=== PATIENT | male | born 1950 | race Caucasian/White ===

== ENCOUNTER 2020-03-31 05:26 | Inpatient (IN) | payer OTHER ==
[~2020-03-31] VITALS: Ht 182.9 cm; Wt 106.0 kg
[2020-03-31] MEDS ORDERED: HEPARIN SODIUM (PORCINE) 5000 UNITS/ML 1ML VIAL ONE (05:35)
[2020-03-31] MEDS ORDERED: HEPARIN SODIUM (PORCINE) 5000 UNITS/ML 1ML VIAL IV ONE (05:45)
[2020-03-31] MEDS ORDERED: SODIUM CHL 0.9% 50 ML ONE ×2 (05:58→07:04)
[2020-03-31] MEDS ORDERED: fentaNYL CITRATE 100 MCG/2 ML VL ONE (05:58)
[2020-03-31] MEDS ORDERED: ANGIOMAX 250 MG VIAL IV ONE ×2 (05:58→07:04)
[2020-03-31] MEDS ORDERED: IODIXANOL 320MG/ML 100ML BTL IV ONE (05:58)
[2020-03-31] MEDS ORDERED: MIDAZOLAM HCL 1MG/1ML-2 ML VIAL ONE (05:58)
[2020-03-31] MEDS ORDERED: LIDOCAINE 2%HCL (LOCAL ANESTH.) INJ 20ML MDV ONE (05:59)
[2020-03-31] MEDS ORDERED: VERAPAMIL 2.5MG/ML INJ 2ML VIAL IV ONE (05:59)
[2020-03-31] MEDS ORDERED: MORPHINE SULFATE 4 MG/ML SYR/VIAL IV PRN (06:15)
[2020-03-31] MEDS ORDERED: NITROGLYCERIN 0.4 MG SL TAB SL PRN ×2 (06:15→08:00)
[2020-03-31] MEDS ORDERED: ACETAMINOPHEN 325 MG TAB PO PRN (06:15)
[2020-03-31] MEDS ORDERED: SODIUM CHLORIDE 0.9% 1,000 ML IV SCH (06:15)
[2020-03-31] MEDS ORDERED: MORPHINE SULF INJ 2 MG/ML SYRINGE 1ML IV PRN ×5 (06:15→10:15)
[2020-03-31 06:37] LABS: Basophils # (auto) 0.1 10 ^3/uL (0-0.2); Basophils % (auto) 0.7 % (0.0-2.0); Eosinophils # (auto) 0.1 10 ^3/uL (0-0.8); Eosinophils % (auto) 0.8 % (0.0-7.0); Hematocrit 47.9 % (41.0-53.0); Hemoglobin 16.8 g/dL (13.5-17.5); Lymphocytes # (auto) 1.6 10 ^3/uL (0.4-5.4); Lymphocytes % (auto) 14.4 % (10.0-50.0); Mean Corpuscular Volume 91.4 fL (80.0-100.0); Monocytes # (auto) 1.1 10 ^3/uL (0-1.3); Monocytes % (auto) 9.6 % (0.0-12.0); Neutrophils # (auto) 8.4 10 ^3/uL (1.6-8.6); Neutrophils % (auto) 74.5 % (37.0-80.0); Nucleated Red Blood Cells % 0.1 %; Platelet Count (auto) 219 10^3/uL (140-450); Red Blood Cells 5.24 10^6/uL (4.5-5.90); Red Cell Distribution Width 13.5 % (11.8-14.3); White Blood Cell 11.3 10^3/uL (4.4-10.8)
[2020-03-31 06:42] LABS: INR 1.07 (0.9-1.15); Partial Thromboplastin Time 28.3 sec (23.64-32.05)
[2020-03-31 06:44] LABS: Albumin 3.7 g/dL (3.4-5.0); Calcium 9.6 mg/dL (8.5-10.1); Magnesium 2.1 mg/dL (1.6-2.6)
[2020-03-31 06:52] LABS: BUN/Creatinine Ratio 11.3; Bilirubin, Total 0.8 mg/dL (0.2-1.0); Total Protein 7.5 g/dL (6.4-8.2)
[2020-03-31] MEDS ORDERED: TICAGRELOR 90 MG TAB ONE (07:23)
[2020-03-31 07:47] LABS: Potassium 2.8 mmol/L (3.5-5.1)
[2020-03-31 08:00] VITALS: BP 125/72
[2020-03-31] MEDS ORDERED: SOD CHL 0.9%/ KCL 40MEQ 1,000 ML IV SCH (08:00)
[2020-03-31] MEDS ORDERED: SPIRONOLACTONE 25 MG TAB PO ONE (08:15)
[2020-03-31] MEDS ORDERED: SODIUM CHLORIDE 0.9% 1,000 ML IV ONE (08:15)
[2020-03-31] MEDS ORDERED: POTASSIUM CHL 20MEQ/100ML 100 ML IV ONE (09:07)
[2020-03-31] MEDS: LISINOPRIL 10 MG TAB PO SCH (09:22)
[2020-03-31] MEDS: ASPirin 81 mg TAB PO SCH (09:22)
[2020-03-31] MEDS: CARVEDILOL 3.125 MG TAB PO SCH ×2 (09:22→22:00)
[2020-03-31] MEDS ORDERED: MORPHINE SULF INJ 2 MG/ML SYRINGE 1ML ONE (09:32)
[2020-03-31] MEDS ORDERED: CLOPIDOGREL BISULFATE 75 MG TAB PO SCH (10:00)
[2020-03-31] MEDS ORDERED: HYDROcodone-ACET 5/325MG TAB PO PRN (10:00)
[2020-03-31] MEDS ORDERED: POTASSIUM CHLORIDE 60 MEQ, LIDOCAINE 1% (LOCAL ANESTH.) 6 ML in SODIUM CHL 0.9% 500 ML IV ONE (11:00)
[2020-03-31 12:00] VITALS: BP 111/60
[2020-03-31] MEDS ORDERED: POTASSIUM CHL 20MEQ/100ML 100 ML IV SCH (12:00)
[2020-03-31] MEDS ORDERED: DEXTROSE (50%) 50ML SYRG IV PRN (13:45)
[2020-03-31] MEDS ORDERED: HCTZ 25 MG TAB PO ONE (13:45)
[2020-03-31 16:00] VITALS: BP 126/72
[2020-03-31] MEDS ORDERED: THROAT LOZENGES(CEPASTAT) MT PRN (16:30)
[2020-03-31] MEDS ORDERED: CALCIUM CARB 500 MG CHEW TAB PO PRN (16:30)
[2020-03-31] MEDS ORDERED: DILT60TA27 PO (17:59)
[2020-03-31] MEDS ORDERED: ENAL2.5T PO (17:59)
[2020-03-31] MEDS ORDERED: ATOR10TA PO (17:59)
[2020-03-31] MEDS ORDERED: ATEN-60 PO (17:59)
[2020-03-31] MEDS ORDERED: HCTZ25T PO (17:59)
[2020-03-31] MEDS ORDERED: CLOPIDOGREL BISULFATE 75 MG TAB PO ONE (18:00)
[2020-03-31] MEDS: ACCU-CHEK COMFORT CURVE STRIP VI SCH ×2 (19:41→21:45)
[2020-03-31] MEDS: InsuLIN REG 1unit/0.01ml Soln (100units/ml) SC SCH ×2 (19:41→22:00)
[2020-03-31 20:00] VITALS: BP 106/62
[2020-03-31 21:12] LABS: BUN/Creatinine Ratio 11.1; Calcium 8.8 mg/dL (8.5-10.1); Potassium 3.5 mmol/L (3.5-5.1)
[2020-03-31] MEDS ORDERED: TEMAZEPAM 15 MG CAP PO PRN (21:15)
[2020-03-31] MEDS: ATORVASTATIN 20 MG TAB PO SCH (21:45)
[2020-04-01] VITALS: BP 122/59
[2020-04-01] MEDS ORDERED: LORazepam 2MG/ML-1ML VIAL IV ONE (02:15)
[2020-04-01] MEDS ORDERED: LORazepam 2MG/ML-1ML VIAL ONE (02:17)
[2020-04-01 04:00] VITALS: BP 134/72
[2020-04-01 05:06] LABS: Albumin 3.1 g/dL (3.4-5.0); BUN/Creatinine Ratio 13.9; Bilirubin, Total 1.3 mg/dL (0.2-1.0); Calcium 8.5 mg/dL (8.5-10.1); Total Protein 6.5 g/dL (6.4-8.2)
[2020-04-01] MEDS: ACCU-CHEK COMFORT CURVE STRIP VI SCH ×4 (07:00→23:24)
[2020-04-01] MEDS: InsuLIN REG 1unit/0.01ml Soln (100units/ml) SC SCH ×4 (07:00→23:24)
[2020-04-01 08:00] VITALS: BP 144/89
[2020-04-01] MEDS ORDERED: POTASSIUM EFFERVESENT TAB 25 MEQ PO ONE (08:07)
[2020-04-01] MEDS: HCTZ 25 MG TAB PO SCH (09:25)
[2020-04-01] MEDS: ASPirin 81 mg TAB PO SCH (09:25)
[2020-04-01] MEDS: LISINOPRIL 10 MG TAB PO SCH (09:26)
[2020-04-01] MEDS: CLOPIDOGREL BISULFATE 75 MG TAB PO SCH (09:26)
[2020-04-01] MEDS: CARVEDILOL 3.125 MG TAB PO SCH ×2 (09:27→23:30)
[2020-04-01] MEDS: POTASSIUM CHL 10 Meq TABLET PO SCH (09:29)
[2020-04-01 10:08] LABS: Basophils # (auto) 0.1 10 ^3/uL (0-0.2); Basophils % (auto) 0.5 % (0.0-2.0); Eosinophils # (auto) 0 10 ^3/uL (0-0.8); Hematocrit 49.8 % (41.0-53.0); Hemoglobin 17.1 g/dL (13.5-17.5); Lymphocytes # (auto) 0.9 10 ^3/uL (0.4-5.4); Mean Corpuscular Hgb Conc. 34.5 g/dL (32.0-36.0); Mean Corpuscular Volume 92.9 fL (80.0-100.0); Monocytes # (auto) 1.8 10 ^3/uL (0-1.3); Monocytes % (auto) 7.8 % (0.0-12.0); Neutrophils # (auto) 20.2 10 ^3/uL (1.6-8.6); Neutrophils % (auto) 87.7 % (37.0-80.0); Platelet Count (auto) 190 10^3/uL (140-450); Red Blood Cells 5.36 10^6/uL (4.5-5.90); Red Cell Distribution Width 13.7 % (11.8-14.3); White Blood Cell 23.1 10^3/uL (4.4-10.8)
[2020-04-01 10:16] LABS: Urine Bacteria FEW /hpf (None Seen); Urine Blood 2+ /uL (Negative); Urine Specific Gravity 1.024 (1.001-1.035); Urine WBC 13 /hpf (0 - 3)
[2020-04-01] MEDS ORDERED: POTASSIUM CHL 20 Meq TABLET PO ONE (11:15)
[2020-04-01 12:00] VITALS: BP 128/82
[2020-04-01] MEDS ORDERED: FUROSEMIDE 100 MG/10ML VIAL IV ONE (12:45)
[2020-04-01] MEDS: SPIRONOLACTONE 25 MG TAB PO SCH (14:20)
[2020-04-01 16:00] VITALS: BP 123/81
[2020-04-01 20:00] VITALS: BP 124/78
[2020-04-01] MEDS: ATORVASTATIN 20 MG TAB PO SCH (23:24)
[2020-04-02] VITALS (7 sets, daily range): BP systolic 98–127; BP diastolic 56–84
[2020-04-02 03:26] LABS: Hematocrit 48.1 % (41.0-53.0); Hemoglobin 16.7 g/dL (13.5-17.5); Mean Corpuscular Hemoglobin 31.9 pg (28.0-32.0); Mean Corpuscular Hgb Conc. 34.7 g/dL (32.0-36.0); Mean Corpuscular Volume 91.8 fL (80.0-100.0); Platelet Count (auto) 196 10^3/uL (140-450); Red Blood Cells 5.25 10^6/uL (4.5-5.90); Red Cell Distribution Width 13.7 % (11.8-14.3)
[2020-04-02 03:29] LABS: Basophils % (manual) 0 (0.0-2.0); Blast Cells 0; Eosinophils % (manual) 0 (0-7); Metamyelocytes % 0; Myelocytes % 0; Promyelocytes % 0; Reactive Lymphocytes 0
[2020-04-02 03:43] LABS: Albumin 2.9 g/dL (3.4-5.0); BUN/Creatinine Ratio 14.8; Calcium 8.7 mg/dL (8.5-10.1); Potassium 3.6 mmol/L (3.5-5.1)
[2020-04-02 04:00] LABS: Bilirubin, Total 1.6 mg/dL (0.2-1.0); Total Protein 6.8 g/dL (6.4-8.2)
[2020-04-02 06:27] LABS: Band Neutrophils % (manual) 2; Lymphocytes % (manual) 5 (10.0-50.0); Monocytes % (manual) 7 (0-12)
[2020-04-02] MEDS: ACCU-CHEK COMFORT CURVE STRIP VI SCH ×4 (07:00→21:24)
[2020-04-02] MEDS: InsuLIN REG 1unit/0.01ml Soln (100units/ml) SC SCH ×4 (07:01→21:25)
[2020-04-02] MEDS: ASPirin 81 mg TAB PO SCH (10:15)
[2020-04-02] MEDS: CLOPIDOGREL BISULFATE 75 MG TAB PO SCH (10:16)
[2020-04-02] MEDS: SPIRONOLACTONE 25 MG TAB PO SCH (10:16)
[2020-04-02] MEDS: CARVEDILOL 3.125 MG TAB PO SCH ×2 (10:16→21:25)
[2020-04-02] MEDS: HCTZ 25 MG TAB PO SCH (10:17)
[2020-04-02] MEDS: POTASSIUM CHL 10 Meq TABLET PO SCH (10:18)
[2020-04-02] MEDS ORDERED: cefTRIAXone 1GM/50ML D5W 50 ML IV ONE (10:30)
[2020-04-02] MEDS: LISINOPRIL 10 MG TAB PO SCH (11:27)
[2020-04-02] MEDS: Glucerna Carbsteady SHAKE Vanilla 8oz PO SCH ×2 (12:00→17:58)
[2020-04-02 13:21] LABS: Hepatitis A Ab IgM Negative; Hepatitis B Core IgM Negative; Hepatitis B Surface Antigen Negative (Negative); Hepatitis C Antibody Negative (Negative)
[2020-04-03 03:28] LABS: Basophils # (auto) 0.1 10 ^3/uL (0-0.2); Basophils % (auto) 0.3 % (0.0-2.0); Eosinophils # (auto) 0 10 ^3/uL (0-0.8); Eosinophils % (auto) 0.1 % (0.0-7.0); Hematocrit 45.4 % (41.0-53.0); Lymphocytes # (auto) 1.2 10 ^3/uL (0.4-5.4); Lymphocytes % (auto) 5.7 % (10.0-50.0); Mean Corpuscular Hgb Conc. 35.2 g/dL (32.0-36.0); Mean Corpuscular Volume 90.8 fL (80.0-100.0); Monocytes # (auto) 2.2 10 ^3/uL (0-1.3); Monocytes % (auto) 10.4 % (0.0-12.0); Neutrophils # (auto) 17.3 10 ^3/uL (1.6-8.6); Neutrophils % (auto) 83.5 % (37.0-80.0); Nucleated Red Blood Cells % 1.3 %; Platelet Count (auto) 159 10^3/uL (140-450); Red Cell Distribution Width 13.5 % (11.8-14.3); White Blood Cell 20.8 10^3/uL (4.4-10.8)
[2020-04-03 03:43] LABS: Albumin 2.4 g/dL (3.4-5.0); Calcium 8.4 mg/dL (8.5-10.1)
[2020-04-03 04:05] VITALS: BP 109/59
[2020-04-03 04:05] LABS: BUN/Creatinine Ratio 22.1; Bilirubin, Total 1.4 mg/dL (0.2-1.0); Total Protein 6.2 g/dL (6.4-8.2)
[2020-04-03 04:20] LABS: Potassium 2.6 mmol/L (3.5-5.1)
[2020-04-03] MEDS: POTASSIUM CHL 20MEQ/100ML 100 ML IV SCH ×3 (04:30→09:00)
[2020-04-03] MEDS: ACCU-CHEK COMFORT CURVE STRIP VI SCH ×2 (06:09→11:59)
[2020-04-03] MEDS: InsuLIN REG 1unit/0.01ml Soln (100units/ml) SC SCH ×2 (06:10→11:30)
[2020-04-03 07:40] VITALS: BP 111/63
[2020-04-03] MEDS: Glucerna Carbsteady SHAKE Vanilla 8oz PO SCH ×2 (08:00→11:59)
[2020-04-03] MEDS ORDERED: cefTRIAXone 1GM/50ML D5W 50 ML IV SCH (09:00)
[2020-04-03] MEDS ORDERED: POTASSIUM EFFERVESENT TAB 25 MEQ PO ONE (09:15)
[2020-04-03] MEDS: ASPirin 81 mg TAB PO SCH (10:04)
[2020-04-03] MEDS: CLOPIDOGREL BISULFATE 75 MG TAB PO SCH (10:05)
[2020-04-03] MEDS: SPIRONOLACTONE 25 MG TAB PO SCH (10:05)
[2020-04-03] MEDS: CARVEDILOL 3.125 MG TAB PO SCH (10:05)
[2020-04-03] MEDS: POTASSIUM CHL 10 Meq TABLET PO SCH (10:06)
[2020-04-03 11:50] VITALS: BP 122/77
[2020-04-03] MEDS: LISINOPRIL 10 MG TAB PO SCH (11:59)
[2020-04-03 12:30] LABS: BUN/Creatinine Ratio 24.1; Calcium 8.2 mg/dL (8.5-10.1); Potassium 3.5 mmol/L (3.5-5.1)
[2020-04-03 14:14] VITALS: BP 122/77
== END 2020-04-03 15:00 | disposition home or self-care (01) | DRG 246 ==
LOC: ER 05:26 → EDBD 05:26 → OBSVTOIN 05:27 → TELE 05:27 → DOU IN ICU 09:22
PROVIDERS: ADMIT Internal Medicine; ATTEND Internal Medicine
PROC: B211YZZ Fluoroscopy of Multiple Coronary Arteries using Other Contrast (ICD-10-PCS; principal; 2020-03-31)
PROC: 027034Z Dilation of Coronary Artery, One Artery with Drug-eluting Intraluminal Device, Percutaneous Approach (ICD-10-PCS; 2020-03-31)
DX: I21.09 ST elevation (STEMI) myocardial infarction involving other coronary artery of anterior wall (principal); I50.43 Acute on chronic combined systolic (congestive) and diastolic (congestive) heart failure; I13.0 Hypertensive heart and chronic kidney disease with heart failure and stage 1 through stage 4 chronic kidney disease, or unspecified chronic kidney disease; J98.11 Atelectasis; E87.1 Hypo-osmolality and hyponatremia; E44.0 Moderate protein-calorie malnutrition; N39.0 Urinary tract infection, site not specified; I25.10 Atherosclerotic heart disease of native coronary artery without angina pectoris; E78.5 Hyperlipidemia, unspecified; E66.9 Obesity, unspecified; E87.6 Hypokalemia; N13.9 Obstructive and reflux uropathy, unspecified; E11.65 Type 2 diabetes mellitus with hyperglycemia; N18.3 Chronic kidney disease, stage 3 (moderate); F17.200 Nicotine dependence, unspecified, uncomplicated; Z79.899 Other long term (current) drug therapy; Z68.31 Body mass index [BMI] 31.0-31.9, adult; Z79.82 Long term (current) use of aspirin; Z79.02 Long term (current) use of antithrombotics/antiplatelets
CPT/HCPCS: 92928; 93454; 96374; 99291; C9606; 36415; 71045; 80048; 80053; 80061; 80074; 81001; 82962; 83036; 83735; 83880; 84443; 84484; 85007; 85025; 85027; 85610; 85730; 86308; 86850; 86900; 86901; 87086; 87088; 87186; 93005; 93306; 99152; 99153; C1874; C1887; G0378; J0696; J1815; J2001; J2250; J3480; Q9967